=== PATIENT | female | born 1945 | race African-American/Black ===

== ENCOUNTER 2023-05-17 11:01 | Emergency (ER) | payer OTHER ==
[~2023-05-17] VITALS: Ht 162.6 cm; Wt 64.4 kg
[2023-05-17] MEDS ORDERED: KETOROLAC TROMETHAMINE INJ 30 MG/ML VIAL ONE (11:28)
[2023-05-17] MEDS ORDERED: ACETAMINOPHEN ES 500 MG TABLET ONE (11:28)
[2023-05-17] MEDS ORDERED: KETOROLAC TROMETHAMINE INJ 30 MG/ML VIAL IM ONE (11:30)
[2023-05-17] MEDS ORDERED: ACETAMINOPHEN ES 500 MG TABLET PO ONE (11:30)
[2023-05-17 14:25] VITALS: BP 110/77; TEMP 98; O2SAT 100
== END 2023-05-17 14:25 | disposition home or self-care (01) ==
LOC: ER 11:14
DX: S32.010A Wedge compression fracture of first lumbar vertebra, initial encounter for closed fracture (principal); M25.551 Pain in right hip; I10 Essential (primary) hypertension; Z88.8 Allergy status to other drugs, medicaments and biological substances; Z60.2 Problems related to living alone; W18.30XA Fall on same level, unspecified, initial encounter; Y93.89 Activity, other specified; Y92.89 Other specified places as the place of occurrence of the external cause; Y99.8 Other external cause status
CPT/HCPCS: 99285; 72131; 96372; 72192; J1885